=== PATIENT | male | born 1960 | race African-American/Black ===

== ENCOUNTER 2016-10-09 12:12 | Day surgery (SDC) | payer BC ==
[~2016-10-09] VITALS: Ht 180.3 cm; Wt 93.4 kg
[~2016-10-09 12:12] MED LIST: COREG12.5 MG PO; DIOVAN; MICROZIDE12.5 MG PO; PEPCID 20MG TAB20 MG PO; PREDNISONE20 MG PO; PRINIVIL20 MG PO
[2016-10-09] MEDS ORDERED: GLUCOPHAGE1000 MG PO (13:00)
[2016-10-09] MEDS ORDERED: ONGLYZA5 MG PO (13:01)
[2016-10-09] MEDS ORDERED: FARXIGA10 PO (13:01)
[2016-10-09] MEDS ORDERED: BYSTOLIC10 MG PO (13:01)
[2016-10-09] MEDS ORDERED: HYDRODIURIL50 MG PO (13:02)
[2016-10-09] MEDS ORDERED: LIPITOR 40MG TA40 MG PO (13:02)
[2016-10-09] MEDS ORDERED: PRILOTC (13:02)
[2016-10-09] MEDS ORDERED: VIAGRA50 M1 PO (13:03)
[2016-10-09 13:05] VITALS: BP 161/86; PULSE 77; TEMP 97.8
[2016-10-09 14:33] VITALS: BP 123/73; PULSE 74; TEMP 98.2
[2016-10-09 14:45] VITALS: BP 148/78; PULSE 67
[2016-10-09 15:00] VITALS: BP 146/84; PULSE 78
[2016-10-09 15:15] VITALS: BP 142/82; PULSE 78
== END 2016-10-09 15:30 | disposition home or self-care (01) ==
LOC: SDCO 12:12
DX: C61 Malignant neoplasm of prostate (principal); F41.9 Anxiety disorder, unspecified; E11.9 Type 2 diabetes mellitus without complications; K21.9 Gastro-esophageal reflux disease without esophagitis; I10 Essential (primary) hypertension; Z79.899 Other long term (current) drug therapy; Z79.84 Long term (current) use of oral hypoglycemic drugs
CPT/HCPCS: J2704; J3010; J7030

== ENCOUNTER 2017-03-20 10:04 | Day surgery (SDC) | payer BC ==
[~2017-03-20] VITALS: Ht 180.3 cm; Wt 94.8 kg
[~2017-03-20 10:04] MED LIST changes: +BYSTOLIC10 MG PO; +FARXIGA10 PO; +GLUCOPHAGE1000 MG PO; +HYDRODIURIL50 MG PO; +LIPITOR 40MG TA40 MG PO; +ONGLYZA5 MG PO; +PRILOTC; +VIAGRA50 M1 PO
[2017-03-20 10:52] VITALS: BP 159/98; PULSE 74; TEMP 98.8
[2017-03-20] MEDS ORDERED: JANUVIA 100MG100 MG PO (11:05)
[2017-03-20 12:15] VITALS: BP 140/86; PULSE 69
[2017-03-20 12:30] VITALS: BP 144/91; PULSE 67
[2017-03-20 12:45] VITALS: BP 146/92; PULSE 69
[2017-03-20 13:50] VITALS: BP 126/86; PULSE 66
== END 2017-03-20 13:00 | disposition home or self-care (01) ==
LOC: SDCO 10:04
DX: Z12.11 Encounter for screening for malignant neoplasm of colon (principal); D12.0 Benign neoplasm of cecum; D12.8 Benign neoplasm of rectum; K62.89 Other specified diseases of anus and rectum; K60.1 Chronic anal fissure; I10 Essential (primary) hypertension; K21.9 Gastro-esophageal reflux disease without esophagitis; E11.9 Type 2 diabetes mellitus without complications; Z85.46 Personal history of malignant neoplasm of prostate; Z92.3 Personal history of irradiation; Z80.0 Family history of malignant neoplasm of digestive organs; Z87.19 Personal history of other diseases of the digestive system
CPT/HCPCS: J2704

== ENCOUNTER → 2021-04-18 | Outpatient (CLI) | payer BC ==
[~2021-04-18] MED LIST changes: +JANUVIA 100MG100 MG PO
== END ==
LOC: COL.RAD 06:58
DX: C61 Malignant neoplasm of prostate (principal); E11.9 Type 2 diabetes mellitus without complications; E66.9 Obesity, unspecified; M79.671 Pain in right foot; M79.672 Pain in left foot; M47.816 Spondylosis without myelopathy or radiculopathy, lumbar region; M51.26 Other intervertebral disc displacement, lumbar region; M48.061 Spinal stenosis, lumbar region without neurogenic claudication
CPT/HCPCS: A9585

== ENCOUNTER → 2022-03-14 | Outpatient (CLI) | payer BC ==
[~2022-03-14] VITALS: Ht 180.3 cm; Wt 107.0 kg
[~2022-03-14] MED LIST changes: +AMITRIPTYLINE H25 M1 PO; +CIALIS5 MG PO; +FLOMAX 0.40.4 MG/CAP PO; +HYGROTON50 MG PO; +LEXAPRO 10MG10 MG PO; +LYRICA 150MG C150 MG PO; +NORVASC 10MG10 MG PO; +ZYRTEC 10MG10 MG PO
[2022-03-14 07:17] VITALS: BP 161/78; PULSE 93; TEMP 97.8
[2022-03-14 08:15] VITALS: BP 150/64; PULSE 95
== END ==
LOC: COL.RAD 06:54
DX: M48.061 Spinal stenosis, lumbar region without neurogenic claudication (principal)
CPT/HCPCS: J3301

== ENCOUNTER → 2022-05-07 | Outpatient (CLI) | payer BC ==
[~2022-05-07] VITALS: Ht 180.3 cm; Wt 106.2 kg
[2022-05-07 12:42] VITALS: BP 148/84; PULSE 79; TEMP 98.9
[2022-05-07 14:20] VITALS: BP 134/68; PULSE 73
== END ==
LOC: COL.RAD 12:07
DX: M48.061 Spinal stenosis, lumbar region without neurogenic claudication (principal)
CPT/HCPCS: J3301

== ENCOUNTER → 2022-12-31 | Outpatient (CLI) | payer BC ==
[~2022-12-31] VITALS: Ht 180.3 cm; Wt 106.5 kg
[~2022-12-31] MED LIST changes: +RYBELSUS7 MG PO
[2022-12-31 11:56] VITALS: BP 137/83; PULSE 85; TEMP 98.1
[2022-12-31 13:45] VITALS: BP 139/84; PULSE 84
== END ==
LOC: COL.RAD 11:14
DX: M48.061 Spinal stenosis, lumbar region without neurogenic claudication (principal)
CPT/HCPCS: J3301

== ENCOUNTER 2023-06-09 15:45 | Outpatient (RCR) | payer BC | END 2023-06-27 | disposition home or self-care (01) | LOC: WSPT | DX: Z98.1 Arthrodesis status (principal) ==

== ENCOUNTER 2024-07-27 12:31 | Emergency (ER) | payer OTHER ==
[~2024-07-27] VITALS: Ht 180.3 cm; Wt 114.5 kg
[2024-07-27 12:37] VITALS: TEMP 98.2
[2024-07-27] MEDS ORDERED: diphenhydrAMINE 50 MG/ML 1 ML VIAL IV ONE (13:00)
[2024-07-27] MEDS ORDERED: Famotidine 20 MG TAB PO ONE (13:00)
[2024-07-27] MEDS ORDERED: methylPREDNISolone Sod Succ 125 MG/2 ML VIAL IV ONE (13:00)
[2024-07-27] MEDS ORDERED: PREDNISONE20 MG PO (14:57)
[2024-07-27] MEDS ORDERED: ATARAX50 MG PO (14:58)
[2024-07-27 15:09] VITALS: BP 174/89; PULSE 89
== END 2024-07-27 15:20 | disposition home or self-care (01) ==
LOC: COL.ER 12:31
DX: T78.3XXA Angioneurotic edema, initial encounter (principal)
CPT/HCPCS: J1200; J2919